=== PATIENT | female | born 1930 | race Caucasian/White ===

== ENCOUNTER 2019-05-07 13:38 | Inpatient (IN) ==
[2019-05-07] MEDS ORDERED: ASPIRIN PR ONE (14:02)
[2019-05-07] MEDS ORDERED: ASPIRIN PO ONE (14:02)
[2019-05-07 14:28] LABS: BASO# 0.01 X1000 (0.0-0.2); BASO% 0.1 % (0.0-0.8); EOS# 0.03 X1000 (0.0-0.7); EOS% 0.3 % (0.0-10.0); HEMATOCRIT 40.5 % (37.0-47.0); HEMOGLOBIN 12.7 g/dL (12.0-16.0); IMM GRAN# 0.02 X1000 (0.0-0.04); IMM GRAN% 0.2 % (0.0-0.5); LYMPH# 0.46 X1000 (1.2-3.4); LYMPH% 5.2 % (20.5-51.1); MCH 30.6 PG (27-31); MCHC 31.4 g/dL (33-37); MCV 97.6 FL (81-99); MONO# 0.55 X1000 (0.11-0.59); MONO% 6.2 % (1.7-9.3); MPV 10.5 FL (7.4-10.4); NEUT# 7.76 X1000 (1.4-6.5); PLT 198 X1000 (130-400); RBC 4.15 XMIL (4.2-5.4); RDW 13.2 % (11.5-14.5); WBC 8.83 X1000 (4.8-10.8)
[2019-05-07 14:52] LABS: INR 1.03; PROTIME 13.6 Seconds (11.0-16.0)
[2019-05-07 14:53] LABS: PTT 27.8 Seconds (22.3-41.8)
--- NOTE | 2019-05-07 14:54 | Diag Imaging Result Doc PS360 ---
EXAM: CHEST-2 VIEWS HISTORY: Chest pain TECHNIQUE: Two views COMPARISON: 05/06/2019 FINDINGS: The lungs are well expanded except for minimal inferior atelectasis. The heart is borderline mildly prominent. The vessels are not distended. There are no infiltrates. No pleural effusions. Scattered granuloma and calcified mediastinal nodes. IMPRESSION: Stable chest Electronically signed by Ashutosh Sheehan 05/07/2019 2:51 PM
--- NOTE | 2019-05-07 15:07 | EKG Report ---
Test Performed on : 05/07/2019 1:46:32 PM Test Reason : C/p Blood Pressure : / mmHG Vent. Rate : 054 BPM Atrial Rate : 054 BPM P-R Int : 196 ms QRS Dur : 106 ms QT Int : 464 ms P-R-T Axes : 001 -26 008 degrees QTc Int : 440 ms Sinus bradycardia. Voltage criteria for left ventricular hypertrophy Abnormal ECG When compared with ECG of 06-MAY-2019 14:40, (Unconfirmed) No significant change was found Unconfirmed Result
[2019-05-07 15:14] LABS: ALB/GLOB RATIO 1.6; ALBUMIN 3.7 g/dL (3.5-5.0); CALCIUM 8.4 mg/dL (8.8-10.2); CREATININE 1.2 mg/dL (0.5-0.9); POTASSIUM 3.9 mmol/L (3.5-5.1); TOTAL BILIRUBIN 1.02 mg/dL (0.20-1.00)
[2019-05-07] MEDS ORDERED: NS 1,000 ML IV ONE (15:23)
--- NOTE | 2019-05-07 15:25 | PROVIDER DOCUMENTATION ---
HPI-General Adult - General Chief Complaint: Chest Pain Stated Complaint: CP Time Seen by Provider: 05/07/19 14:02 Source: patient Allergies/Adverse Reactions: Patient Allergies Allergy/AdvReac Type Severity Reaction Status Date / Time No Known Allergies Allergy Verified 05/07/19 14:43 Home Medications: Home Medication List Medication Instructions Recorded Confirmed Last Taken Type ATORVAstatin [Lipitor] 40 mg PO DAILY 11/11/13 05/07/19 05/07/19 History Clopidogrel [Plavix] 75 mg PO DAILY 11/11/13 05/07/19 05/07/19 History Hydralazine HCl 25 mg PO DAILY 11/11/13 05/07/19 05/07/19 History Metoprolol Tartrate 25 mg PO DAILY 11/11/13 05/07/19 05/07/19 History Clobetasol Prop 0.05% Cream 1 applicatn TOP DIRECTED 02/02/17 05/07/19 05/07/19 History [Temovate 0.05% Cream] Alprazolam [Xanax] 0.25 mg PO BID 07/01/18 05/07/19 05/07/19 History Enalapril Maleate [Vasotec] 20 mg PO BID 07/01/18 05/07/19 05/07/19 History Meclizine HCl [Dramamine Less 25 mg PO RTTID 07/01/18 05/07/19 05/07/19 History Drowsy] Omeprazole 20 mg PO BID 07/01/18 05/07/19 05/07/19 History Amlodipine [Norvasc] 5 mg PO DAILY 05/07/19 05/07/19 05/06/19 History Hydrocodone/Acetaminophen 1 ea PO Q8HR 05/07/19 05/07/19 05/07/19 History [Hydrocodone-Acetamin 5-325 mg] Sucralfate [Carafate] 1 gm PO RTQ8H 05/07/19 05/07/19 Unknown History - History of Present Illness -Gen Adult Nature of Presenting Problems: This is a 88yo female who presents with CC of chest pain. The patient reports that The pain is central and associated with some sweats. The pain was not improved with nitro, but was was improved with fentanyl enroute. The symptoms were noted at 10:30am. The patient came yesterday with the same pain but did not want admission. The patient does have hx of CAD with stenting as well as st rokes. Location of Pain/Injury: reports: chest Pain Radiation: reports: no radiation Onset/Duration: reports: 2 days ago Timing: reports: still present, improving Context/Activities at Onset: reports: none Modifying Factors: improves with: nothing Associated Symptoms: reports: diaphoresis Similar Symptoms Previously?: Yes (yesterday) Recently seen or treated by another doctor?: Yes (ED yesterday, did not want admission) Review of Systems - Adult - REVIEW OF SYSTEMS - ADULT Constitutional: denies: fever Eyes: reports: no symptoms reported Ears, Nose, Mouth & Throat: reports: no symptoms reported. denies: throat pain Cardiovascular: reports: chest pain Respiratory: reports: no symptoms reported. denies: cough, shortness of breath Gastrointestinal: reports: no symptoms reported. denies: abdominal pain Genitourinary: reports: no symptoms reported. denies: flank pain Musculoskeletal: reports: no symptoms reported. denies: back pain Integumentary: reports: no symptoms reported. denies: rash Neurological: reports: no symptoms reported. denies: headache/migraines Psychiatric: reports: anxiety, panic attacks Endocrine: reports: no symptoms reported Hematologic/Lymphatic: reports: no symptoms reported, other (no bleeding) Allergic/Immunologic: reports: no symptoms reported, other (no swelling) Past History - Adult - PAST MEDICAL HISTORY-ADULT Review of Records: reports: Old Records Reviewed Major Childhood Illnesses: reports: denies history Cardiovascular: reports: CAD, HTN, hyperlipidemia Respiratory: reports: denies history Gastrointestinal: reports: GERD Obstetrical/Gynecological: reports: other (endometrial cancer) Genitourinary: reports: denies history Musculoskeletal: reports: denies history Neurological: reports: CVA Psychiatric: reports: anxiety Endocrine/Immune: reports: denies history Other Conditions: reports: denies history - PRIOR SURGERIES/PROCEDURES Surgical/Procedure History: reports: cardiac stent, hysterectomy - IMMUNIZATION STATUS Childhood Immunizations: See Nurse Assessment Flu Vaccine: See Nurse Assessment - FAMILY HISTORY Family History: CVA/TIA Physical Exam-General - PHYSICAL EXAM-ADULT Initial Vital Signs Reviewed: Yes - CONSTITUTIONAL General Appearance: appears well, alert, no apparent distress - EYES Eyes: negative: conjuctival exudate, scleral icterus - HEAD, EARS, NOSE, MOUTH & THROAT HENMT: normocephalic/atraumatic. negative: moist mucous membranes (Dry) - NECK Neck: normal inspection - RESPIRATORY Respiratory: lungs clear. negative: crackles, rales, wheezing - CARDIOVASCULAR Cardiovascular: regular rate, rhythm, other (Trace LE edema bilaterally) - GASTROINTESTINAL (ABDOMEN) Abdominal Exam: non tender, soft - MUSCULOSKELETAL Extremity: negative: deformity (No LE deformity) - SKIN Integumentary: normal color, warm/dry - NEUROLOGIC Neurologic: grossly normal - PSYCHIATRIC Psych/Mental Status: normal mood/affect, normal thought content, normal thought process Progress - PLAN OF CARE/RESULTS Progress/Plan/Lab Results: Vital Signs - 8 hr 05/07/19 13:50 Temperature 97.8 F Pulse Rate 57 L Respiratory Rate 20 Blood Pressure 122/61 O2 Sat by Pulse Oximetry 98 Laboratory Results - last 24 hr 05/07/19 05/07/19 05/07/19 13:50 13:50 13:50 WBC 8.83 RBC 4.15 L Hgb 12.7 Hct 40.5 MCV 97.6 MCH 30.6 MCHC 31.4 L RDW Std Deviation 13.2 Plt Count 198 MPV 10.5 H Immature Gran % (Auto) 0.2 Neut % (Auto) 88.0 H Lymph % (Auto) 5.2 L Burt % (Auto) 6.2 Eos % (Auto) 0.3 Baso % (Auto) 0.1 Immature Gran # (Auto) 0.02 Neut # (Auto) 7.76 H Lymph # (Auto) 0.46 L Burt # (Auto) 0.55 Eos # (Auto) 0.03 Baso # (Auto) 0.01 PT 13.6 INR 1.03 PTT (Actin FS) 27.8 Sodium 139 Potassium 3.9 D Chloride 103 Carbon Dioxide 21 L Anion Gap 15 BUN 24 H Creatinine 1.2 H Estimated GFR/1.73 m2 42 BUN/Creatinine Ratio 20 Glucose 139 H Calculated Osmolality 284 Calcium 8.4 L Total Bilirubin 1.02 H AST 123 H ALT 54 H Alkaline Phosphatase 158 H Creatine Kinase 90 Troponin T Total Protein 6.0 L Albumin 3.7 Globulin 2.3 Albumin/Globulin Ratio 1.6 05/07/19 13:50 WBC RBC Hgb Hct MCV MCH MCHC RDW Std Deviation Plt Count MPV Immature Gran % (Auto) Neut % (Auto) Lymph % (Auto) Burt % (Auto) Eos % (Auto) Baso % (Auto) Immature Gran # (Auto) Neut # (Auto) Lymph # (Auto) Burt # (Auto) Eos # (Auto) Baso # (Auto) PT INR PTT (Actin FS) Sodium Potassium Chloride Carbon Dioxide Anion Gap BUN Creatinine Estimated GFR/1.73 m2 BUN/Creatinine Ratio Glucose Calculated Osmolality Calcium Total Bilirubin AST ALT Alkaline Phosphatase Creatine Kinase Troponin T < 0.010 Total Protein Albumin Globulin Albumin/Globulin Ratio Orders Category Date Time Status Cardiac Monitoring DIRECTED Care 05/07/19 14:03 Active Cardiac Monitoring DIRECTED Care 05/07/19 14:03 Active Oxygen Therapy- ED Nursing DIRECTED Care 05/07/19 14:03 Active Oxygen Therapy- ED Nursing DIRECTED Care 05/07/19 14:03 Active Saline Loc NOW Care 05/07/19 14:03 Active Saline Loc NOW Care 05/07/19 14:03 Active CHEST-2 VIEWS [RAD] Stat Exams 05/07/19 14:03 Completed CBC WITH ELECTRONIC DIFF [HEME] Stat Lab 05/07/19 13:50 Completed CK PROFILE [SP CHEM] Stat Lab 05/07/19 13:50 Completed COMPREHENSIVE METABOLIC PANEL [CHEM] Stat Lab 05/07/19 13:50 Completed PRO B-NATRIURETIC PEPTIDE Stat Lab 05/07/19 13:50 Received PROTIME WITH INR [COAG] Stat Lab 05/07/19 13:50 Completed PTT [COAG] Stat Lab 05/07/19 13:50 Completed TROPONIN T Stat Lab 05/07/19 13:50 Completed Aspirin Med 05/07/19 14:02 Discontinued 300 mg SD NOW ONE Aspirin Med 05/07/19 14:02 Discontinued 325 mg PO NOW ONE Ns 1000 ml IV Bolus X1 Med 05/07/19 15:23 Ordered 0.9% Sodium Chloride Inj [Ns] 1,000 ml IV 999 mls/hr CP/SOB/Palp >45 yrs of Age Stat Oth 05/07/19 14:02 Ordered CP/SOB/Palp >45 yrs of Age Stat Oth 05/07/19 14:03 Ordered EKG [EKG] Stat Ther 05/07/19 14:03 Draft Result Diagrams: 05/07/19 13:50 05/07/19 13:50 - REASSESSMENT Reassessment #1 Status: other (Discussed case with hospitalist team who have accepted the p atient.) - EKG 1 EKG Interpretation (*Must complete 3 of following elements*): Abnormal Rate: 54 Rhythm: sinus bradycardia [place]: normal QRS: normal SD Interval: normal ST Wave: non-specific ST changes Prior EKG Comparison: changes noted Comments: no arrythmia present on prior.previous T wave inversions noted in III Departure - Departure Date of Disposition Decision: 05/07/19 Time of Disposition Decision: 15:52 DIAGNOSIS: Chest pain Qualifiers: Chest pain type: unspecified Qualified Code(s): R07.9 - Chest pain, unspecified Disposition: ADMITTED INPATIENT 09 Certified Medical Emergency: Emergent Condition: Fair Referrals and Follow-Ups: Katia Vo MD [Primary Care Provider] - - Critical Care Note This patient required my direct & personal management of CC.: No Attestation - Physician/ SARITA Attestation Patient care was provided by Advanced Practice Provider:: No The physician spent face to face time with patient:: Yes Advanced Practice Provider documentation review:: Supervising physician onsite and consulted in the evaluation and care of this patient. The physician did have a face to face encounter with the patient. - HEART Score HEART Score: History: Moderately Suspicious HEART Score: ECG: Non-Specific Repolarization Disturbance/LBBB/PM HEART Score: Age: > or = 65 Years HEART Score: Risk Factors for Atherosclerotic Disease: > or = 3 Risk Factors or History of Atherosclerotic Disease HEART Score: Troponin: < or = Normal Limit Total HEART Score:: 6
[2019-05-07] MEDS ORDERED: ZOFRAN IV PRN (15:53)
--- NOTE | 2019-05-07 18:57 | Diag Imaging Result Doc PS360 ---
EXAM: US ABDOMEN-COMPLETE INDICATION: CP, abd pain, COMPARISON: None. FINDINGS: The gallbladder is distended and there are multiple shadowing stones as well as sludge layering in the gallbladder lumen. The common bile duct diameter is within normal limits for age measuring up to 7 mm in diameter. Sonographic Bettencourt's sign was reported to be negative. The liver is grossly unremarkable. Portal venous flow is hepatopetal. The visualized pancreas is unremarkable. The aorta and IVC are grossly unremarkable. The spleen is mildly prominent measuring up to 13.4 cm in length. The kidneys are grossly unremarkable. IMPRESSION: Cholelithiasis with a distended gallbladder. No gallbladder wall thickening or significant biliary dilatation is appreciated. Electronically signed by Hany Monge 05/07/2019 6:55 PM
[2019-05-07 19:33] LABS: AMYLASE 31 U/L (20-200); CK PROFILE 99 U/L (24-173); LIPASE 18 U/L (13-60)
[2019-05-07] MEDS ORDERED: MORPHINE IV PRN (19:36)
[2019-05-07] MEDS ORDERED: PROTONIX IV SCH (19:45)
[2019-05-07] MEDS ORDERED: SODIUM CHLORIDE 0.9% INJ SCH (19:45)
[2019-05-07] MEDS ORDERED: TYLENOL PO ONE (20:50)
--- NOTE | 2019-05-07 21:20 | HISTORY AND PHYSICAL ---
CHIEF COMPLAINT: Chest pain with diaphoresis. HISTORY OF PRESENT ILLNESS: This is an 88-year-old female with a prior history of CAD status post RI and stents used, endometrial cancer, hypertension, prior TIA with a history of an abdominal aortic aneurysm. She presents to the emergency room for the second time in 24 hours, complaining of chest pain. On talking with Ms. Sanchez, she states that this actually started Tuesday morning. She ate cereal and milk. She had abdominal pain and had to leave [place] that her abdomen was hurting so bad. When she got home, she began to have some midsternal chest pain and rib pain along with her abdominal pain. She stated that the pain was predominantly in her right upper quadrant, epigastric area, and lower chest. She took 3 nitroglycerin and aspirin. The pain resolved. Workup in the emergency room was negative, but they offered admission, and the patient refused and was discharged home. She got up this morning, ate cereal and milk. Shortly after eating, she started to have chest pain with diaphoresis. It did not improve with nitroglycerin. She did have some epigastric and right upper quadrant pain along with this. She was given fentanyl en route to the emergency room, and her pain subsided. She stated that this does not feel like her prior cardiac pain. Of note, the patient did have pain similar this years ago, was told she had gallstones, but "they told me I was too old to have it operated on." Reviewing the patient's labs, she did have a white count of 10 in the emergency room on the with a creatinine of 1 and normal LFTs. Today, she is noted to have a creatinine of 1.2 with a total bilirubin of 1.02, an AST of 123, ALT of 54, and alkaline phosphatase of 158. She is tender in the epigastric and right upper quadrant region on exam. PAST MEDICAL HISTORY: 1. Endometrial and uterine cancer. 2. CAD status post RI with stents. She does report blockage to the back of her heart that they were unable to reach to place stents, and she refused coronary artery bypass grafting. 3. CVA. 4. Gastroesophageal reflux disease. 5. Hyperlipidemia. 6. Hypertension. 7. Transient ischemic attack. PAST SURGICAL HISTORY: Carotid endarterectomy, left lower extremity vein harvested and 3 cardiac stents, hysterectomy. SOCIAL HISTORY: She denies alcohol, tobacco, or illicit drug use. ALLERGIES: No known drug allergies. HOME MEDICATIONS: A list will be obtained by the nursing staff and once verified, we will review and restart it as appropriate. REVIEW OF SYSTEMS: Discussed with patient with pertinent positives stated in the HPI. She denied any syncope or dizziness, any palpitations, any vomiting, diarrhea, constipation, black or bloody vomitus or stools, a productive cough, any shortness of breath, fever, chills, night sweats, recent weight loss or weight gain, any hematuria, dysuria, frequency, urgency. PHYSICAL EXAMINATION: GENERAL: This is an 88-year-old female, who is lying on the stretcher in the emergency room in no distress. VITAL SIGNS: Blood pressure is 122/61 with a heart rate of 63, respirations are 20, temperature is 97.8 degrees oral, with O2 saturations 98%. EYES: Pupils equal, round, react to light. EOMs are intact. Sclerae anicteric. HENT: Head is normocephalic, atraumatic. Mucous membranes are moist. NECK: Supple with trachea midline. CARDIOVASCULAR: Regular rate and rhythm. S1 and S2 appreciated. She has no lower extremity edema. Calves are nontender bilateral with peripheral pulses palpable x4 extremities. PULMONARY: Breath sounds are clear. No increased work of breathing noted. Chest rises and falls symmetric with respiration. GASTROINTESTINAL: Abdomen is soft, nontender, nondistended with bowel sounds in all 4 quadrants. GENITOURINARY: No CVA or suprapubic tenderness. NEUROLOGIC: Alert and oriented x3. SKIN: Warm and dry. DIAGNOSTIC STUDIES: WBC is 8.8 with hemoglobin 12.7, hematocrit 40.5, platelets 198,000. Sodium 139, potassium 3.9, BUN 24, creatinine 1.2 with a glucose of 139, total bilirubin 1.02 with an AST of 123, ALT 54, alkaline phosphatase of 158. Troponin is less than 0.010. ProBNP 1729. Chest x-ray reveals stable chest lungs well expanded, except for minimal inferior atelectasis. Heart is borderline prominent. The vessels are not distended. There are no infiltrates. EKG reveals sinus rhythm, she is in sinus bradycardia at a rate of 54. ASSESSMENT AND PLAN: 1. Chest pain. The patient will be admitted and placed on telemetry. We will continue to trend cardiac profile and troponin. We will continue home medicines as appropriate. 2. Right upper quadrant epigastric pain along with elevated liver function tests in a patient with known gallstones. She will be n.p.o. We will get an abdominal ultrasound. 3. Acute kidney injury. IV hydration. We will hold any renal-toxic medications and renal dose medications as appropriate. 4. Elevated liver function tests. As stated above. 5. History of aorta ultrasound on 05/06/2019 revealed distal abdominal aorta with a proximal diameter of 2.4 cm and distal of 3.5. The aorta is torturous. We are aware. 6. History of coronary artery disease. As stated, we will continue to trend troponins. 7. Gastroesophageal reflux disease. Start Protonix for PPI. Plan was discussed with Dr. Ochoa. Further treatments pending hospital course. Dictated by JENI Amin for Nain Ochoa MD cc: JENI Amin MD Pt seen ,examined, has atypical chest pain but is more consistent with GI complaints, as pt has known cholelithiasis; we are getting an abdominal US; and surgical evaluation; agree with above assessments. MTDD
[2019-05-07] MEDS ORDERED: NS 500 ML ONE (21:24)
[2019-05-07] MEDS: XANAX PO SCH (21:29)
[2019-05-07] MEDS: ZOSYN 3.375 GM in NS 50 ML IV SCH (21:30)
[2019-05-07] MEDS: NS 1,000 ML IV SCH (22:54)
[2019-05-08] MEDS: ZOSYN 3.375 GM in NS 50 ML IV SCH ×3 (03:05→13:26)
[2019-05-08 08:43] LABS: BASO# 0.01 X1000 (0.0-0.2); BASO% 0.2 % (0.0-0.8); HEMATOCRIT 35.5 % (37.0-47.0); HEMOGLOBIN 10.9 g/dL (12.0-16.0); LYMPH# 0.39 X1000 (1.2-3.4); LYMPH% 5.9 % (20.5-51.1); MCH 30.3 PG (27-31); MCHC 30.7 g/dL (33-37); MCV 98.6 FL (81-99); MONO# 0.67 X1000 (0.11-0.59); MONO% 10.2 % (1.7-9.3); MPV 10.9 FL (7.4-10.4); NEUT% 83.7 % (42.2-75.2); PLT 151 X1000 (130-400); RDW 13.4 % (11.5-14.5); WBC 6.57 X1000 (4.8-10.8)
[2019-05-08] MEDS: NS 1,000 ML IV SCH (09:02)
[2019-05-08] MEDS: XANAX PO SCH (09:03)
[2019-05-08 09:41] LABS: ALB/GLOB RATIO 1.2; ALBUMIN 2.9 g/dL (3.5-5.0); CALCIUM 8.1 mg/dL (8.8-10.2); CREATININE 1.1 mg/dL (0.5-0.9); POTASSIUM 3.6 mmol/L (3.5-5.1); TOTAL BILIRUBIN 0.64 mg/dL (0.20-1.00); TOTAL PROTEIN 5.3 g/dL (6.3-8.3)
[2019-05-08] MEDS ORDERED: TEMOVATE 0.05% CREAM TOP SCH (11:30)
--- NOTE | 2019-05-08 12:52 | CONSULTATION ---
DATE OF CONSULTATION: 05/08/2019 HISTORY OF PRESENT ILLNESS: Ms. Angel Sanchez is an 88-year-old white female who remains active, who was admitted with chest pain and upper abdominal pain and it was discovered with abdominal ultrasound that she has gallstones with a distended gallbladder but no evidence of gallbladder wall thickening or biliary dilatation. We were asked to see her because of her symptomatic gallstones. PAST MEDICAL AND SURGICAL HISTORY: Hysterectomy, cardiac stents years ago, history of endometrial cancer, coronary artery disease, GERD, hypertension, hyperlipidemia. MEDICATIONS: 1. Lipitor. 2. Plavix. 3. Hydralazine. 4. Metoprolol. 5. Temovate cream. 6. Xanax. 7. Vasotec. 8. Dramamine. 9. Omeprazole. 10. Norvasc. 11. [place] 5. 12. Carafate. ALLERGIES: No known drug allergies. SOCIAL HISTORY: She is retired. She helps her daughter who has muscular dystrophy. She remains active. She does not smoke. REVIEW OF SYSTEMS: A 14-point review of systems was performed and was essentially negative except for the history of present illness. FAMILY HISTORY: Reviewed and is essentially negative. PHYSICAL EXAMINATION: On exam, Ms. Sanchez is an older white female, in no acute distress. HEENT exam: No jaundice. No oral lesions. Satisfactory dentition. No cervical or supraclavicular lymphadenopathy. Her heart has a regular rate. Lungs were clear to auscultation and percussion bilaterally. Her abdomen was soft, nontender, without palpable mass. She had a well-healed lower midline scar that went above the umbilicus. No evidence of hernia. No costovertebral tenderness. Rectal vaginal exams were not performed. She does have palpable femoral pulses. She has no significant peripheral edema. Neurologically, she had no focal deficit. Her weight is 168 pounds, she is 5 feet 1 inch. Temperature 97.6 degrees, heart rate 78, blood pressure 138/57, O2 saturation 99%. IMAGING: An ultrasound documents cholelithiasis with a distended gallbladder. Clinically her symptoms have improved since admission. PLAN: She needs to be off Plavix for 1 week prior to proceeding with an elective cholecystectomy. As long as her symptoms are controlled, I feel that she can be discharged home and I will arrange elective outpatient cholecystectomy next week. I will allow her to have a heart healthy diet today. I have discussed the procedure in detail with her and her family at the bedside. I do feel at 88, the benefits outweigh the risks for cholecystectomy. cc: Aliyah Winn MD
[2019-05-08] MEDS ORDERED: NORCO-5 PO SCH (13:00)
[2019-05-08 13:32] VITALS: BP 126/57
[2019-05-08] MEDS ORDERED: ANTIVERT PO SCH (15:00)
[2019-05-08] MEDS ORDERED: CARAFATE PO SCH (15:00)
--- NOTE | 2019-05-08 16:46 | DISCHARGE SUMMARY ---
ADMISSION DATE: 05/07/2019 DISCHARGE DATE: 05/08/2019 DISCHARGE DIAGNOSES: 1. Cholelithiasis without cholecystitis. 2. Acute kidney injury, resolved. 3. Transaminitis. 4. Coronary artery disease. 5. Gastroesophageal reflux disease. PROCEDURES: 1. Chest x-ray done on admission showed stable chest. 2. Abdominal ultrasound showed cholelithiasis with distended gallbladder. No gallbladder thickening or significant biliary dilatation is appreciated. CONSULTATIONS: Dr. Miguel Winn from General Surgery. HOSPITAL COURSE: In brief, this is an 88-year-old female who presented to the emergency department complaining of some pressure in the abdomen in the epigastric area. Sometimes it radiated to the central thoracic area and to the right upper quadrant. ER evaluation revealed that this patient had cholelithiasis without cholecystitis. We have consulted Dr. Winn, who thinks that this patient needs to have elective laparoscopic cholecystectomy, but considering that this patient is on Plavix, we cannot do any procedures in the next 7 days. Plan for her is to discharge this patient, and we will provide Dr. Winn's contact information so the patient can call office to schedule this surgery as an outpatient next week. The patient is being released in stable condition. She has not had any fever. Because of the elevated white cell count, I prefer to discharge this patient with oral antibiotics and pain medications as well. DISCHARGE PHYSICAL EXAMINATION: Vitals: Temperature 97.8 degrees, heart rate 74, respiratory rate 16, blood pressure 126/57, O2 saturation 97% on 2 L nasal cannula. General: This is an 88- year-old female lying in bed, in no acute distress. Cardiovascular: S1, S2 heard. No murmurs, gallops, or rubs. Regular rate and rhythm. Respiratory: Clear bilaterally to auscultation. No work of breathing or using accessory muscles. Abdomen: Soft. Nontender to palpation. Bowel sounds present. No organomegaly. Extremities: No clubbing, cyanosis, or edema. Peripheral pulses present in both legs. Neurological: The patient is alert and oriented x3. Moves 4 extremities. DISCHARGE DISPOSITION: Home to self-care. FOLLOWUP: With Dr. Winn in the office. She needs to call the office to arrange outpatient laparoscopic cholecystectomy. DISCHARGE MEDICATIONS: 1. Augmentin 750 mg 1 tablet p.o. b.i.d. for 10 days. 2. [place] 5, 1 tablet p.o. every 4 hours as needed for pain. cc: Jay Rodriguez MD
[2019-05-08] MEDS ORDERED: VASOTEC PO SCH (21:00)
[2019-05-08] MEDS ORDERED: LIPITOR PO SCH (21:00)
[2019-05-09] MEDS ORDERED: LOPRESSOR PO SCH (09:00)
[2019-05-09] MEDS ORDERED: APRESOLINE PO SCH (09:00)
[2019-05-09] MEDS ORDERED: NORVASC PO SCH (09:00)
== END 2019-05-08 15:10 | disposition home or self-care (01) | DRG 445 ==
LOC: SUPCPDRO → ED 13:38 → SUATTDRO 16:17 → 1N 16:17
PROVIDERS: ATTEND Internal Medicine